=== PATIENT | female | born 1940 | race Caucasian/White ===

== ENCOUNTER 2021-12-29 07:22 | Emergency (ER) | payer MEDICARE, SELFPAY ==
--- NOTE | ~2021-12-29 | CT_ITS ---
EXAMINATION: CT brain wo con DATE: 12/29/2021 07:51 INDICATION: Dog bite to forehead. TECHNIQUE: Computed tomography (CT) of the head was performed without intravenous contrast. The mA wa s adjusted according to patient size. Iterative reconstruction technique was employed. The dose-lengt h product was 605.33 mGy-cm. COMPARISON: None FINDINGS: There are scattered areas of low attenuation in the cerebral white matter. There is no intr acranial hemorrhage, acute infarction, or abnormal intracranial mass lesion. The ventricles are rebecca l in size. There are likely changes of ocular lens replacement surgeries. There is mild mucosal thick ening in the ethmoid sinuses. The mastoid air cells are normal. IMPRESSION: 1. Moderate nonspecific cerebral white matter disease, which likely represents chronic small vessel i schemic disease. Reviewed, dictated and finalized at location B. IMPRESSION: 1. Moderate nonspecific cerebral white matter disease, which likely represents chronic small vessel ischemic disease.
[2021-12-29 07:31] VITALS: BP 139/96; PULSE 86; RESP 16; TEMP 36.4; O2SAT 99
--- NOTE | 2021-12-29 07:38 | ED.GENADULT ---
HPI - General Adult General Chief complaint: Animal Bite Stated complaint: head laceration Time Seen by Provider: 12/29/21 07:25 Source: RN notes reviewed History of Present Illness HPI narrative: Patient presents emergency department from home for dog bite. Patient states that she is got her to babysit her granddaughter's and there is a Italian Gonzales she said the Italian Gonzales he wanted water and jumped up on the patient and then had attacked her neck the patient into the wall and she struck her head on the side of the wall states the dog tried to continually bite her and she has abrasions over the right jaw as well as a linear laceration on the right side of her face she is unsure if the laceration on ice of her face is from striking the wall as this is where she did hit or from the dog she denies any loss of consciousness she denies any vision changes she denies any numbness or tingling in extremities or any other symptoms. States she is up-to-date on her tetanus shot also states the dog is up-to-date on all of its shots Related Data Allergies Allergy/AdvReac Type Severity Reaction Status Date / Time Sulfa (Sulfonamide Allergy Rash Verified 12/29/21 07:34 Antibiotics) Review of Systems Review of Systems: Gen.: Denies fevers or chills Eyes: Denies eye pain or visual change ENT: See HPI Respiratory: Denies shortness of breath CV: Denies chest pain GI: Denies abdominal pain nausea, emesis Musculoskeletal: Denies back pain or muscle pain Neuro: Denies numbness, tingling, weakness or focal weakness Skin: Reports laceration Except as documented, all other systems reviewed and negative [facility] Past Medical History Medical History (Updated 12/29/21 @ 09:12 by Marcelo Martinez DO) Patient denies significant medical history Social History Social History (Updated 12/29/21 @ 07:39 by Marcelo Martinez DO) Smoking status: Never smoker Exam Narrative: APPEARANCE: No acute distress, nontoxic, resting in bed EYES: EOMI HEENT: Normocephalic, nares patent oral mucosa moist erythema exudate posterior pharynx 4 cm linear laceration on the right lateral forehead that is deep with no foreign body seen several small abrasions over the right lateral jaw with no active bleeding or signs of infection RESPIRATORY: No respiratory distress MUSCULOSKELETAl: Moves all extremities. No clubbing, cyanosis or edema. NEURO: Awake and alert. Following commands, speech normal, no focal deficits SKIN:: Warm, dry. No rashes lesions or abrasions PSYCHIATRIC: Normal affect/mood, Course Course Emergency Course: Discussed with patient suturing her forehead patient is requesting plastic surgery for closure Discussed with Dr. Patrick. This time he requested patient be discharged with follow-up in his office for 1 PM appointment today with patient to show up at 1230 will close in office Patient's wound was cleaned and dressed with Telfa by nursing staff Discussed with patient results of workup and diagnosis. Discussed need for follow-up with primary care, proper use of medication, and reasons to return to the emergency department. Patient understands and agrees to current treatment plan Vital Signs Vital signs: Vital Signs Temperature 97.5 F L 12/29/21 07:31 Pulse Rate 86 12/29/21 07:31 Respiratory Rate 16 12/29/21 07:31 Blood Pressure 139/96 H 12/29/21 07:31 Pulse Oximetry 99 12/29/21 07:31 Temperature 97.5 F L 12/29/21 07:31 Pulse Rate 86 12/29/21 07:31 Respiratory Rate 16 12/29/21 07:31 Blood Pressure 139/96 H 12/29/21 07:31 Pulse Oximetry 99 12/29/21 07:31 Medical Decision Making Vital Signs Vital Signs: Vital Signs Temperature 97.5 F L 12/29/21 07:31 Pulse Rate 86 12/29/21 07:31 Respiratory Rate 16 12/29/21 07:31 Blood Pressure 139/96 H 12/29/21 07:31 Pulse Oximetry 99 12/29/21 07:31 Temperature 97.5 F L 12/29/21 07:31 Pulse Rate 86 12/29/21 07:31 Respiratory Rate 16
--- NOTE | 2021-12-29 07:44 | PC.NURSE ---
Pt to CT scan via stretcher at this time.
[2021-12-29] MEDS: AMOXICILLIN/CLAVULANATE K 875-125 MG TAB 1 TABLET PO (08:16)
[2021-12-29 09:19] VITALS: BP 144/93; PULSE 74; RESP 18; O2SAT 98
== END 2021-12-29 09:27 | disposition home or self-care (01) ==
PROVIDERS: Emergency Provider Emergency Medicine
DX: S01.85XA Open bite of other part of head, initial encounter (principal); R90.82 White matter disease, unspecified; W54.0XXA Bitten by dog, initial encounter
CPT/HCPCS: 70450; 99283; A9270